=== PATIENT | female | born 1990 | race African-American/Black ===

== ENCOUNTER 2020-10-11 11:15 | Inpatient (IN) | payer OTHER, SELFPAY ==
[2020-10-11] VITALS (46 sets, daily range): BP systolic 76–154; BP diastolic 36–122; PULSE 60–94; RESP 14–18; TEMP 36.1–37; O2SAT 98–100; BMI 39.6
[2020-10-11] MEDS: fentaNYL CITRATE INJ (*CRX) 100 MCG/2 ML VIAL IV PUSH (11:50)
[2020-10-11] MEDS: AMPICILLIN 2 GM/NS 100 ML 2 GM/100 ML BAG IVPB (11:59)
[2020-10-11 12:08] LABS: Basophils Percent Auto 0.5 % (0.2-1.2); Eosinophils Absolute Auto 0.1 K/mm3 (0-0.3); Eosinophils Percent Auto 1.1 % (0-4.4); Hematocrit 33.8 % (37.0-47.0); Hemoglobin 10.8 g/dL (12.0-15.0); Immature Granulocyte Absolute 0.03 K/mm3 (0.00-0.031); Immature Granulocyte Percent A 0.5 % (0-0.5); Immature Platelet Fraction Pct 7.8 % (0.9-11.2); Lymphocytes Absolute Auto 2.34 K/mm3 (0.9-3.2); Lymphocytes Percent Auto 38.2 % (18.3-44.2); Mean Corpuscular Hemoglobin 28.1 pg (26-34); Mean Corpuscular Volume 87.8 fl (80-100); Mean Platelet Volume 11.3 fl (7.4-10.4); Monocytes Absolute Auto 0.6 K/mm3 (0.1-0.6); Neutrophils Absolute Auto 3.1 K/mm3 (1.3-6.7); Neutrophils Percent Auto 50.7 % (45.5-73.1); Platelet Count Result 154 k/mm3 (150-375); Red Blood Count 3.85 M/mm3 (4.2-5.4); Red Cell Distribution Width 12.7 % (11.5-14.5); White Blood Count 6.1 K/mm3 (4.5-10.0)
--- NOTE | 2020-10-11 12:11 | WPDOBADMIT ---
Obstetrics - Admit Note Admission Note: record reviewed. No pertinent additions to the history and/or any subsequent changes in the physical findings that are not consistent with the expected course of the were found. Pt admitted at 4 cm in active labor, SROM clear fluid Additions to the history and/or subsequent changes in the physical findings follow. None.
--- NOTE | 2020-10-11 12:12 | PM.IMHP ---
H&P: HPI History of Present Illness Date/Time: 10/11/20 12:12 Chief Complaint: pt arrives to in active labor, G 6 P4, questionable history of HSV, + blood test from previous physician, recently transferred 10/[address] Denny and HSV culture on vaginal lesion done at that time, no results back, +GBS infection, limited care from july to september Review of Systems Review of Systems: All systems reviewed & are unremarkable except as noted in HPI and below PMFSH Family History Family History (Updated 10/05/20 @ 15:03 by Babak Rodgers RN) Grandparent Kidney disease Father Kidney failure Cirrhosis of liver Social History Social History Substance use: current Last use: 10/05/20 Spiritual care concerns: No Meds Home Medications and Allergies Allergies Allergy/AdvReac Type Severity Reaction Status Date / Time latex Allergy Hives Verified 10/05/20 14:50 Vital Signs Vital Signs - 24 hr 10/11/20 11:46 10/11/20 12:01 Pulse Rate 89 94 Blood Pressure 129/50 L 89/68 L Exam Narrative: left labia three small non painful lesions detected on bright light active, actively leaking clear fluid Const: General: cooperative and healthy appearing H&P: Results Labs Labs: Short CBC 10/11/20 Range/Units 11:59 WBC 6.1 (4.5-10.0) K/mm3 Hgb 10.8 L (12.0-15.0) g/dL Hct 33.8 L (37.0-47.0) % Plt Count 154 (150-375) k/mm3 Assessment and Plan Assessment and plan (1) HSV-2 infection complicating : Code(s): O98.519 - Other viral diseases complicating , unspecified trimester; B00.9 - Herpesviral infection, unspecified Status: Acute Additional Plan 1. possible HSV 2 infection discussed with pt and discussed risk of vaginally deliver and HSV infection, pt consents to primary cearean section and travis aleman notified and on his way
[2020-10-11] MEDS: ceFAZolin 2 GM/D5W 50 ML 2 GM/50 ML BAG IVPB (12:51)
[2020-10-11 12:57] LABS: HIV 1/2 Ab P24 Ag Result Negative (Negative)
--- NOTE | 2020-10-11 13:44 | W.PM.PROC2 ---
Procedure Note - Detailed Date of Procedure 10/11/20 Pre-op Diagnosis Term gestation, labor, HSV outbreak Post-op Diagnosis same Procedure Performed Low-transverse section Surgeon Ge Chandler MD Anesthesia general and spinal Findings Normal gestational maternal anatomy, average size , normal Apgars. Description of Procedure The patient was taken the operating room. She was prepped and draped in dorsal supine position with a leftward tilt. This was done after spinal anesthetic was applied. A low-transverse skin incision was made and carried down till of the fascia with the knife. The fascial incision was made with the knife. The fascial incision was extended laterally with Mascorro scissors. The fascia was tented upward superiorly and inferiorly the rectus muscles were dissected off bluntly. The rectus muscles were the midline. The preperitoneal fat and peritoneum were dissected open bluntly at the superior aspect of the rectus muscles. The peritoneal incision was extended superior and inferior with good position of bladder. The uterine incision was made with a scalpel down to the level of the amniotic cavity. The amniotic cavity was entered bluntly. The was delivered. The cord was clamped and cut and the infant was handed off to waiting pediatric staff. Cord bloods were obtained. The placenta was removed manually. The uterus was exteriorized. The uterus was cleared of all clots, debris and membranes. The uterus was closed in 0 Vicryl running lock fashion. An imbricating over a was placed along the incision line as well. The uterus was returned to the abdomen. The gutters were cleared of all clots and debris. The fascia was closed with 0 Vicryl running fashion. The subcutaneous tissue was irrigated pinpoint bleeders were cauterized. The skin was closed with subcuticular absorbable jonny. The skin incision line was covered with glue. The patient tolerated the procedure well. She has taken recovery room in stable condition. Sponge lap and needle counts were correct x2. Estimated Blood Loss 750 Pathology yes Complications No immediate complications Condition stable Disposition PACU
--- NOTE | 2020-10-11 14:09 | WPDANESEPPF ---
Anes - Initial Pre Proc Eval Procedure: Operation Date: 10/11/20 13:00 Proposed Procedures p Section - Ge Chandler MD Date/Time: 10/11/20 14:09 Surgeon: Ge Chandler MD Pre Op Diagnosis: Contractions Patient Data Age: 30 Gender: F Height: Weight: Last Vital Signs Pulse 81 10/11/20 12:39 BP 111/58 L 10/11/20 12:39 Allergies Allergy/AdvReac Type Severity Reaction Status Date / Time latex Allergy Hives Verified 10/05/20 14:50 Laboratory Tests 10/11/20 10/11/20 10/11/20 11:59 11:59 11:59 WBC 6.1 K/mm3 K/mm3 (4.5-10.0) RBC 3.85 M/mm3 L M/mm3 (4.2-5.4) Hgb 10.8 g/dL L g/dL (12.0-15.0) Hct 33.8 % L % (37.0-47.0) MCV 87.8 fl fl (80-100) MCH 28.1 pg pg (26-34) MCHC 32.0 g/dl g/dl (32-36) RDW 12.7 % % (11.5-14.5) Plt Count 154 k/mm3 k/mm3 (150-375) MPV 11.3 fl H fl (7.4-10.4) Immature Gran % (Auto) 0.5 % % (0-0.5) Neut % (Auto) 50.7 % % (45.5-73.1) Lymph % (Auto) 38.2 % % (18.3-44.2) [place] % (Auto) 9.0 % H % (2.6-8.5) Eos % (Auto) 1.1 % % (0-4.4) Baso % (Auto) 0.5 % % (0.2-1.2) Lymph # (Auto) 2.34 K/mm3 K/mm3 (0.9-3.2) [place] # (Auto) 0.6 K/mm3 K/mm3 (0.1-0.6) Eos # (Auto) 0.1 K/mm3 K/mm3 (0-0.3) Baso # (Auto) 0.0 K/mm3 K/mm3 (0.0-0.1) Abs Immat Gran (auto) 0.03 K/mm3 K/mm3 (0.00-0.031) Absolute Neuts (auto) 3.1 K/mm3 K/mm3 (1.3-6.7) Absolute Nucleated RBC 0.0 K/mm3 K/mm3 (0.0-0.012) Nucleated RBC % 0.0 % % (0.0-0.2) % Immature Plt Fraction 7.8 % % (0.9-11.2) RPR Pending HIV 1&2 Ab/P24 Ag 4thGn Negative (Negative) Blood Type Antibody Screen 10/11/20 11:59 WBC RBC Hgb Hct MCV MCH MCHC RDW Plt Count MPV Immature Gran % (Auto) Neut % (Auto) Lymph % (Auto) [place] % (Auto) Eos % (Auto) Baso % (Auto) Lymph # (Auto) [place] # (Auto) Eos # (Auto) Baso # (Auto) Abs Immat Gran (auto) Absolute Neuts (auto) Absolute Nucleated RBC Nucleated RBC % % Immature Plt Fraction RPR HIV 1&2 Ab/P24 Ag 4thGn Blood Type O Positive Antibody Screen Negative Patient hx anesthesia problems: none Family hx anesthesia problems: none [facility] Family History Family History Grandparent Kidney disease Father Kidney failure Cirrhosis of liver Social History Social History Substance use: current Last use: 10/05/20 Spiritual care concerns: No Anes - Eval Final PreProcedure Day of Procedure 10/11/20 14:09 Heart: regular rate and rhythm Lungs: clear to auscultation Neurological: alert and oriented ASA classification: II Emergent: yes Anesthetic plan: proceed Anesthesia type and monitoring: general ETT and standard monitoring Other findings: exam per BK pt uncooperative for regional Informed Consent: The patient's anesthetic plan and its attendant risks and benefits were discussed with the patient/family/POA. Questions were solicited and answers provided to the satisfaction of the patient/family/POA.
[2020-10-11] MEDS: KETOROLAC 30 MG/ML VIAL (*BKC) IV PUSH (14:19)
[2020-10-11] MEDS: MORPHINE SULFATE (*CRX) 2 MG/ML INJ 3 MG IV PUSH ×5 (14:20→15:03)
[2020-10-11 14:42] LABS: Amphetamine Screen Urine Negative (Negative); Barbiturate Screen Urine Negative (Negative); Benzodiazepines Screen Urine Negative (Negative); Cannabinoid Screen Urine Positive (Negative); Cocaine Screen Urine Negative (Negative); Methadone Screen Urine Negative (Negative); Opiate Screen Urine Positive (Negative); Phencyclidine Screen Urine Negative (Negative)
[2020-10-11] MEDS: MORPHINE SULFATE PCA (*CRX) 30 MG/30 ML SYR IV CONT (15:15)
[2020-10-11] MEDS: OXYTOCIN 30 UNITS/NS 500 ML 30 UNITS/500 ML BAG 125 UNITS IV CONT (15:19)
[2020-10-11] MEDS: ONDANSETRON INJ 4 MG/2 ML VIAL IV PUSH (20:00)
[2020-10-11] MEDS: KCL 20 MEQ/D5/0.45% SOD CHL 1,000 ML 125 ML IV CONT (20:00)
--- NOTE | 2020-10-11 20:10 | PC.NURSE ---
Patient transferred to post room #290 via (stretcher ). Oriented to unit, room, information board, rooming in, admission packet and security measures. Patient verbalizes understanding.
[2020-10-11] MEDS: valACYclovir HCL 500 MG TABLET 1000 MG PO (21:00)
[2020-10-12] VITALS (9 sets, daily range): BP systolic 112–141; BP diastolic 54–71; PULSE 58–95; RESP 16–18; TEMP 36.4–36.9; O2SAT 100
[2020-10-12] MEDS: SIMETHICONE 80 MG TAB.CHEW PO ×3 (03:33→23:31)
[2020-10-12] MEDS: IBUPROFEN 600 MG TABLET PO ×3 (03:33→19:54)
[2020-10-12] MEDS: HYDROcodone/acetaminophen (*CRX) 5-325 MG TABLET 1 TAB PO ×2 (03:34→19:55)
[2020-10-12 05:35] LABS: Basophils Percent Auto 0.2 % (0.2-1.2); Eosinophils Percent Auto 0.1 % (0-4.4); Hematocrit 30.4 % (37.0-47.0); Hemoglobin 9.8 g/dL (12.0-15.0); Immature Granulocyte Absolute 0.08 K/mm3 (0.00-0.031); Immature Granulocyte Percent A 0.5 % (0-0.5); Lymphocytes Absolute Auto 1.63 K/mm3 (0.9-3.2); Lymphocytes Percent Auto 10.6 % (18.3-44.2); Mean Corpuscular HGB Conc 32.2 g/dl (32-36); Mean Corpuscular Volume 86.9 fl (80-100); Mean Platelet Volume 12.1 fl (7.4-10.4); Monocytes Absolute Auto 0.9 K/mm3 (0.1-0.6); Monocytes Percent Auto 5.9 % (2.6-8.5); Neutrophils Absolute Auto 12.8 K/mm3 (1.3-6.7); Neutrophils Percent Auto 82.7 % (45.5-73.1); Platelet Count Result 161 k/mm3 (150-375); Red Cell Distribution Width 12.4 % (11.5-14.5); White Blood Count 15.5 K/mm3 (4.5-10.0)
--- NOTE | 2020-10-12 09:35 | PM.OBPNVD ---
OB - PN: Subj Subjective Date/time seen: 10/12/20 09:35 Patient comments: no complaints baby status: doing well feeding status: exclusively breast feeding OB - PN: Obj Data Labs CBC & Chem 7: 10/12/20 03:41 Labs: Laboratory Results - last 24 hr 10/11/20 10/11/20 10/11/20 11:59 11:59 11:59 WBC 6.1 RBC 3.85 L Hgb 10.8 L Hct 33.8 L MCV 87.8 MCH 28.1 MCHC 32.0 RDW 12.7 Plt Count 154 MPV 11.3 H Immature Gran % (Auto) 0.5 Neut % (Auto) 50.7 Lymph % (Auto) 38.2 [place] % (Auto) 9.0 H Eos % (Auto) 1.1 Baso % (Auto) 0.5 Lymph # (Auto) 2.34 [place] # (Auto) 0.6 Eos # (Auto) 0.1 Baso # (Auto) 0.0 Abs Immat Gran (auto) 0.03 Absolute Neuts (auto) 3.1 Absolute Nucleated RBC 0.0 Nucleated RBC % 0.0 % Immature Plt Fraction 7.8 Urine Opiates Screen Urine Methadone Screen Ur Barbiturates Screen Ur Phencyclidine Scrn Ur Amphetamine Screen U Benzodiazepines Scrn Urine Cocaine Screen U Cannabinoids Screen HIV 1&2 Ab/P24 Ag 4thGn Negative Blood Type O Positive Antibody Screen Negative 10/11/20 10/12/20 11:59 03:41 WBC 15.5 H RBC 3.50 L Hgb 9.8 L Hct 30.4 L MCV 86.9 MCH 28.0 MCHC 32.2 RDW 12.4 Plt Count 161 MPV 12.1 H Immature Gran % (Auto) 0.5 Neut % (Auto) 82.7 H Lymph % (Auto) 10.6 L [place] % (Auto) 5.9 Eos % (Auto) 0.1 Baso % (Auto) 0.2 Lymph # (Auto) 1.63 [place] # (Auto) 0.9 H Eos # (Auto) 0.0 Baso # (Auto) 0.0 Abs Immat Gran (auto) 0.08 H Absolute Neuts (auto) 12.8 H Absolute Nucleated RBC 0.0 Nucleated RBC % 0.0 % Immature Plt Fraction Urine Opiates Screen Positive A Urine Methadone Screen Negative Ur Barbiturates Screen Negative Ur Phencyclidine Scrn Negative Ur Amphetamine Screen Negative U Benzodiazepines Scrn Negative Urine Cocaine Screen Negative U Cannabinoids Screen Positive A HIV 1&2 Ab/P24 Ag 4thGn Blood Type Antibody Screen OB - PN A/P Plan day: 1 Plan: routine care Time Spent With Patient Time: Total time spent is greater than 50% in coordination of care (as documented) at patient's floor/unit and/or counseling patient: Review of Systems Review of Systems: Incision clean dry and intact All systems reviewed & are unremarkable except as noted in HPI and below Exam Narrative: incision cdi Const: General: cooperative and healthy appearing Nutritional Appearance: well nourished Psych: Affect: normal affect Attitude: cooperative
--- NOTE | 2020-10-12 11:22 | P.PNOB_ITS ---
OB - PN: Subj Subjective Date/time seen: 10/12/20 11:22 Patient comments: no complaints, pain well controlled, tolerating diet and flatus present OB - PN: Obj Data Labs CBC & Chem 7: 10/12/20 03:41 Labs: Laboratory Results - last 24 hr 10/11/20 10/11/20 10/11/20 11:59 11:59 11:59 WBC 6.1 RBC 3.85 L Hgb 10.8 L Hct 33.8 L MCV 87.8 MCH 28.1 MCHC 32.0 RDW 12.7 Plt Count 154 MPV 11.3 H Immature Gran % (Auto) 0.5 Neut % (Auto) 50.7 Lymph % (Auto) 38.2 [place] % (Auto) 9.0 H Eos % (Auto) 1.1 Baso % (Auto) 0.5 Lymph # (Auto) 2.34 [place] # (Auto) 0.6 Eos # (Auto) 0.1 Baso # (Auto) 0.0 Abs Immat Gran (auto) 0.03 Absolute Neuts (auto) 3.1 Absolute Nucleated RBC 0.0 Nucleated RBC % 0.0 % Immature Plt Fraction 7.8 Urine Opiates Screen Urine Methadone Screen Ur Barbiturates Screen Ur Phencyclidine Scrn Ur Amphetamine Screen U Benzodiazepines Scrn Urine Cocaine Screen U Cannabinoids Screen HIV 1&2 Ab/P24 Ag 4thGn Negative Blood Type O Positive Antibody Screen Negative 10/11/20 10/12/20 11:59 03:41 WBC 15.5 H RBC 3.50 L Hgb 9.8 L Hct 30.4 L MCV 86.9 MCH 28.0 MCHC 32.2 RDW 12.4 Plt Count 161 MPV 12.1 H Immature Gran % (Auto) 0.5 Neut % (Auto) 82.7 H Lymph % (Auto) 10.6 L [place] % (Auto) 5.9 Eos % (Auto) 0.1 Baso % (Auto) 0.2 Lymph # (Auto) 1.63 [place] # (Auto) 0.9 H Eos # (Auto) 0.0 Baso # (Auto) 0.0 Abs Immat Gran (auto) 0.08 H Absolute Neuts (auto) 12.8 H Absolute Nucleated RBC 0.0 Nucleated RBC % 0.0 % Immature Plt Fraction Urine Opiates Screen Positive A Urine Methadone Screen Negative Ur Barbiturates Screen Negative Ur Phencyclidine Scrn Negative Ur Amphetamine Screen Negative U Benzodiazepines Scrn Negative Urine Cocaine Screen Negative U Cannabinoids Screen Positive A HIV 1&2 Ab/P24 Ag 4thGn Blood Type Antibody Screen OB - PN A/P Plan day: 1 Comments: Post Op LTCS - no problems, routine recovery Time Spent With Patient Time: Total time spent is greater than 50% in coordination of care (as documented) at patient's floor/unit and/or counseling patient: Exam Const: General: cooperative, healthy appearing, comfortable and no acute dis tress Resp: Auscultation: no crackles, no rales, no rhonchi and no wheezes Cardio: Rhythm: regular rhythm Heart sounds: no click and no murmurs GI: Inspection: non-distended Auscultation: normal bowel sounds Extrem: General: normal to inspection, no pedal edema and no calf tenderness
[2020-10-12] MEDS: valACYclovir HCL 500 MG TABLET 1000 MG PO ×2 (12:01→23:31)
[2020-10-12] MEDS: MULTIVIT/MIN/PREN/FOL AC/IRON TABLET 1 TAB PO (12:01)
[2020-10-12] MEDS: POLYSACCHARIDE IRON COMPLEX 150 MG CAPSULE PO ×2 (12:01→19:55)
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
--- NOTE | 2020-10-12 13:05 | PC.NURSE ---
Upon entering room mother has to breast modified side lying position. Infant able to latch correctly. Reviewed signs of a correct latch, effective nursing and suck swallow ratio. Infant nursed eagerly, with steady draws and frequent swallowing noted. Mother states she bottle fed within a half hour and infant put to breast with feeding cues and has not suckled, just keeping nipple in his mouth. Suggested to stimulate into nursing, if he does not remove from breast. Reviewed infant feeding cues, frequencies, duration of feedings, feeding elimination flow sheet, and signs of adequate intake. Reviewed positioning/alignment in side lying, holding breast in ?C? hold and guided asymmetrical latch on. Discussed rational for each. Mother reports she does not normally use this position, just tried due to her rib discomfort. Mother reports this is 5th child to breastfeed and is very comfortable with . Advised to call out for assist as needed.
[2020-10-12] MEDS: DOCUSATE SODIUM 100 MG CAPSULE PO (19:56)
--- NOTE | 2020-10-13 07:30 | PC.NURSE ---
Patient was given the opportunity to view the discharge video Mother & Baby Care, The First Two Weeks and to ask questions. Patient declined viewing the video and has been given the mother/baby guide for home reference.
--- NOTE | 2020-10-13 07:39 | PM.OBPNVD ---
OB - PN: Subj Subjective Date/time seen: 10/13/20 07:39 Patient comments: no complaints, pain well controlled, incisional pain, tolerating diet and flatus present OB - PN: Obj Data Labs CBC & Chem 7: 10/12/20 03:41 OB - PN A/P Plan day: 2 Plan: routine care Comments: POD#2 LTCS - no problems, Time Spent With Patient Time: Total time spent is greater than 50% in coordination of care (as documented) at patient's floor/unit and/or counseling patient: Exam Const: General: comfortable, no acute distress and alert Resp: Effort & Inspection: normal respiratory effort Auscultation: no crackles, no rales and no rhonchi Cardio: Rate: regular rate Heart sounds: no click, no murmurs and no rubs GI: Inspection: non-distended GI Palp: No Tenderness to palpation present (GI) Auscultation: normal bowel sounds Other: Incision - CDI Extrem: General: normal to inspection, no pedal edema and no calf tenderness
--- NOTE | 2020-10-13 07:41 | PM.OBDSVD ---
DS: Admitting Diagnosis Admitting Diagnosis labor, hsv DS: Discharge Diagnosis Discharge Diagnosis (1) delivery delivered: Code(s): O82 - Encounter for delivery without indication Status: Acute (2) HSV-2 infection complicating : Code(s): O98.519 - Other viral diseases complicating , unspecified trimester; B00.9 - Herpesviral infection, unspecified Status: Acute OB - DS: Summary OB Procedures : None OB Procedures Intrapartum: OB Procedures: : None Peripartum Data Procedures: Procedures Operation Date: 10/11/20 13:00 Actual Procedure Side Surgeon p Section Ge Chandler MD Time Spent with Patient Time attestation: Total time spent providing and/or coordinating discharge services: DS: Data Data Completed and Pending Pending studies at discharge: Pending at discharge 10/11/20 13:20 Surgical [PTH] Routine Discharge Plan Discharge Discharging Clinician: Ge Chandler Patient Disposition: Home, Self-Care Activity: pelvic rest Diet: regular Patient Instructions: Antibiotic Form Stand Alone Forms: General Discharge Information Follow-up/Referrals: Ge Chandler MD [Physician] - Discharge Medications: New hydrocodone-acetaminophen 5-325 mg tablet 1 - 2 tablet PO Q4H PRN (Reason: pain) Qty: 25 RF: 0 ferrous sulfate [Feosol] 325 mg (65 mg iron) tablet 325 mg PO BID Qty: 60 RF: 3 simethicone 80 mg Tablet,Chewable 80 mg PO Q2H PRN (Reason: Gas) Qty: 20 RF: 0 Date of admission: 10/11/20 11:15 Primary Care Provider: Kary,Isaias Hart Admitting Provider: Ge Chandler Attending physician on admission: Ge Chandler Condition: Stable
[2020-10-13 08:00] VITALS: BP 127/55; PULSE 86; RESP 18; RESP 20; TEMP 36.6; O2SAT 100
[2020-10-13] MEDS: IBUPROFEN 600 MG TABLET PO (08:32)
[2020-10-13] MEDS: SIMETHICONE 80 MG TAB.CHEW PO (08:33)
[2020-10-13] MEDS: HYDROcodone/acetaminophen (*CRX) 5-325 MG TABLET 1 TAB PO (08:33)
[2020-10-13] MEDS: MULTIVIT/MIN/PREN/FOL AC/IRON TABLET 1 TAB PO (08:33)
[2020-10-13] MEDS: valACYclovir HCL 500 MG TABLET 1000 MG PO (08:33)
[2020-10-13] MEDS: POLYSACCHARIDE IRON COMPLEX 150 MG CAPSULE PO (08:34)
[2020-10-13] MEDS: DOCUSATE SODIUM 100 MG CAPSULE PO (08:34)
--- NOTE | 2020-10-13 08:47 | PC.NURSE ---
Self care and infant care discharge instructions given including follow up visit date and time. Pt. verbalized understanding. No questions or concerns voiced. Very pleasant and cooperative.
--- NOTE | 2020-10-13 09:10 | PC.NURSE ---
Mother is able to independently latch infant with appropriate positioning/alignment. She denies any nipple discomfort, is feeding as required and waking to feed if needed. has had at least 8 effective feedings in the past 24 hours, and is currently meeting outcomes for weight, output, jaundice and feeding frequencies. Mother states she feels confident to continue effective at home with plans to supplement as she feels infant needs. Reviewed transition to breast milk, signs of adequate intake, and engorgement/relief. Instructed to call ICP if intake/output less than required. Reviewed regular medications mother is taking. Information provided per Monik. Reviewed community resources on the [facility] website and in the Mom/Baby guide. Information on outpatient services provided. Mother has no further questions at this time.
[2020-10-13 10:30] LABS: Rapid Plasma Reagin Non-Reactive (NonReactive)
== END 2020-10-13 10:40 | disposition home or self-care (01) | DRG 540 ==
LOC: ANHLDR 11:40 → ANHOB2 16:07
PROVIDERS: Advanced Practice Midwife; Admitting Provider Obstetrics & Gynecology; PCP Family Medicine; Visit Provider Obstetrics & Gynecology
PROC: 10D00Z1 Extraction of Products of Conception, Low, Open Approach (ICD-10-PCS; CPT 59514; principal; 2020-10-11 13:00)
DX: O98.52 Other viral diseases complicating childbirth (principal); Z37.0 Single live birth; Z3A.39 39 weeks gestation of pregnancy; B00.9 Herpesviral infection, unspecified; O99.824 Streptococcus B carrier state complicating childbirth; O99.02 Anemia complicating childbirth; D64.9 Anemia, unspecified
CPT/HCPCS: 36415; 80307; 85025; 85055; 86592; 86703; 86850; 86900; 86901; 88307; A9270; G0432; J0290; J0690; J1885; J2270; J2274; J2405; J2590; J2795; J3010; J3480

== ENCOUNTER 2023-10-25 16:32 | Outpatient (CLI) | payer OTHER, SELFPAY ==
--- NOTE | ~2023-10-25 | US_ITS ---
COMPLETE AND LIMITED MATERNAL ULTRASOUND (Doppler ultrasound interrogation techniques used as n eeded for this exam.) Ordering provider: Hannah Dukes CNM History: . growth and TUAN/ limited PNC . Comparison: None. Findings: : Single intrauterine fetus with heart rate measured at 133 bpm which is within normal limits. Presentation: Vertex. Lie: Longitudinal. Estimated weight is 3286 gm. EFW/GP 57.6% -- BIOMETRICS: BPD: 85.7 mm = 34 weeks and 4 days. HC: 328.9 mm = 37 weeks and 3 days. FL: 70.4 mm = 36 weeks and 1 day. AC: 352.8 mm = 39 weeks and 1 day. HC/AC: 0.93 FL/BPD: 82.17 FL/AC: 19.96 Amniotic fluid volume is subjectively within normal TUAN measures 16.8 cm. 5th percentile is 7.3 cm. 9 5th percentile is 23.9 cm. Largest pocket is 7.3 cm. Placenta is anterior. No evidence for significant placental anomalies including placenta previa. Ultrasound gestational age is 36 weeks and 6 days. TINA is November 16, 2023 The cervix measures 4.3 cm. IMPRESSION: Single live fetus of Vertex presentation with 36 weeks and 6 days. TINA is November 16, 2023. Reviewed, dictated and finalized at location A. IMPRESSION: Single live fetus of Vertex presentation with 36 weeks and 6 days. TINA is 2023.
[2023-10-25 17:00] LABS: Basophils Percent Auto 0.3 % (0.2-1.2); Eosinophils Absolute Auto 0.1 K/mm3 (0-0.3); Hemoglobin 10.8 g/dL (12.0-15.0); Immature Granulocyte Absolute 0.02 K/mm3 (0.00-0.031); Immature Granulocyte Percent A 0.3 % (0-0.5); Lymphocytes Percent Auto 25.1 % (18.3-44.2); Mean Corpuscular HGB Conc 32.7 g/dl (32-36); Mean Corpuscular Hemoglobin 29.3 pg (26-34); Mean Corpuscular Volume 89.7 fl (80-100); Mean Platelet Volume 11.1 fl (7.4-10.4); Monocytes Absolute Auto 0.6 K/mm3 (0.1-0.6); Monocytes Percent Auto 8.1 % (2.6-8.5); Neutrophils Absolute Auto 4.6 K/mm3 (1.3-6.7); Neutrophils Percent Auto 64.2 % (45.5-73.1); Platelet Count Result 186 k/mm3 (150-375); Red Blood Count 3.68 M/mm3 (4.2-5.4); Red Cell Distribution Width 13.3 % (11.5-14.5); White Blood Count 7.2 K/mm3 (4.5-10.0)
[2023-10-25 17:01] VITALS: BP 137/64; PULSE 82
[2023-10-25 17:04] LABS: Add Urine Microscopic? NO; Appearance Urine Clear (Clear); Bilirubin Urine Negative (Negative); Blood Urine Negative (Negative); Color Urine Yellow (Yellow); Glucose Urine UA Negative (Negative); Ketones Urine Negative (Negative); Leukocyte Esterase Ur Negative LEU/UL (Negative); Nitrate Urine Negative (Negative); Protein Urine Negative (Negative); Specific Grav Ur 1.018 (1.001-1.035); pH Urine 6.5 (5.0-9.0)
[2023-10-25 17:11] LABS: Alanine Aminotransferase 14 U/L (6-35); Albumin Level 3.4 g/dL (3.5-5.1); Alkaline Phosphatase 152 U/L (38-126); Anion Gap 8 mmol/L (4-12); Aspartate Amino Transferase 23 U/L (14-36); Bilirubin,Total 0.3 mg/dL (0.2-1.3); Blood Urea Nitrogen 7 mg/dL (7-17); Calcium 9.4 mg/dL (8.4-10.2); Carbon Dioxide 22 mmol/L (22-30); Chloride 104 mmol/L (98-107); Estimated Glomerular Filt Rate > 60; Glucose 93 mg/dL (65-110); Potassium 3.9 mmol/L (3.4-5.0); Sodium 134 mmol/L (137-145); Uric Acid 4.4 mg/dL (2.5-7.5)
[2023-10-25 17:16] VITALS: BP 128/55; PULSE 75
[2023-10-25 17:24] VITALS: BP 137/64; PULSE 68
[2023-10-25 17:28] LABS: Creatinine Urine 93.9 mg/dL; Total Protein Urine Random 8 mg/dL; Ur Ttl Prot Creatinine Ratio 0.09 mg/mg (0-0.20)
[2023-10-25 17:51] LABS: HIV 1/2 Ab P24 Ag Result Negative (Negative); Rapid Plasma Reagin Non-Reactive (NonReactive)
--- NOTE | 2023-10-25 17:52 | PC.NURSE ---
174--Hue on unit. Report given-lab, NST. Waiting on return from US.
--- NOTE | 2023-10-25 19:02 | PC.NURSE ---
Called Lj Dukes CNM, update on waiting on growth results, the office will call tomorrow with results and schedule next appointment. Orders received to discharge pt with instructions on when to return to the unit.
--- NOTE | 2023-10-25 19:07 | PC.NURSE ---
Pt discharged with instructions to schedule next appointment when the office calls tomorrow and when to return to the unit, pt verbalizes understanding.
== END 2023-10-25 19:07 | disposition home or self-care (01) ==
LOC: ANHOBOP 16:38 → ANHOBPP 16:38
PROVIDERS: PCP Family Medicine; Visit Provider Advanced Practice Midwife
DX: O13.9 Gestational [pregnancy-induced] hypertension without significant proteinuria, unspecified trimester (principal); Z3A.00 Weeks of gestation of pregnancy not specified
CPT/HCPCS: 36415; 59025; 76815; 80053; 81003; 82570; 84156; 84550; 85025; 86592; 86703; 99199; G0432